=== PATIENT | female | born 1960 | race African-American/Black ===

== ENCOUNTER 2017-09-27 12:38 | Emergency (ER) | payer OTHER ==
[~2017-09-27] VITALS: Ht 162.6 cm; Wt 77.0 kg
[~2017-09-27 12:38] MED LIST: AMLO5TAB22 PO; BENZ100C4 PO; BLOOKIT5; FLUT50SP EACH NARE; HYDR-2768 PO; LOSA50TA PO; METO25CR PO
[2017-09-27 12:47] VITALS: BP 206/93; PULSE 70; RESP 18; TEMP 97.8; O2SAT 100
[2017-09-27] MEDS ORDERED: AMLO10 PO (13:05)
[2017-09-27] MEDS ORDERED: HYDR25TA5 PO (13:05)
[2017-09-27] MEDS ORDERED: LOSA50TA PO (13:05)
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
[2017-09-27] MEDS ORDERED: ORPHENADRINE INJ 60 MG/2 ML AMP IM ONE (13:15)
[2017-09-27] MEDS ORDERED: KETOROLAC TROMETHAMINE 60 MG/2 ML (IM) VIAL IM ONE (13:15)
--- NOTE | 2017-09-27 13:45 | RADRPT ---
EXAM DATE: 09/27/2017 1:41 PM EDT AGE/SEX: 56 years / Female INDICATIONS: Neck pain radiating down right shoulder. CLINICAL DATA: This is the patient's initial encounter. Patient reports that signs and symptoms have been present for 1 day and indicates a pain score of 7/10. MEDICAL/SURGICAL HISTORY: . No pertinent history. . No pertinent history. COMPARISON: No prior exams available for comparison. FINDINGS: Degenerative changes in the cervical spine C4-C5, C5-C6 and C6-C7. AP and odontoid unremarkable. CONCLUSION: Degenerative changes as above. Electronically signed by: Christopher William MD 09/27/2017 1:43 PM EDT
[2017-09-27] MEDS ORDERED: ROBA500T PO (14:06)
[2017-09-27] MEDS ORDERED: IBUP-232 PO (14:06)
== END 2017-09-27 14:21 | disposition home or self-care (01) ==
LOC: NEPC 12:38
DX: S16.1XXA Strain of muscle, fascia and tendon at neck level, initial encounter (principal); I10 Essential (primary) hypertension; V43.62XA Car passenger injured in collision with other type car in traffic accident, initial encounter; Y92.488 Other paved roadways as the place of occurrence of the external cause
CPT/HCPCS: 72040; 96372; 99283; J1885; J2360

== ENCOUNTER 2017-10-02 10:54 | Emergency (ER) | payer SELFPAY ==
[~2017-10-02] VITALS: Ht 152.4 cm; Wt 80.0 kg
[~2017-10-02 10:54] MED LIST changes: +AMLO10 PO; -AMLO5TAB22 PO; -BENZ100C4 PO; -BLOOKIT5; -FLUT50SP EACH NARE; -HYDR-2768 PO; +HYDR25TA5 PO; +IBUP-232 PO; -METO25CR PO; +ROBA500T PO
[2017-10-02 10:57] VITALS: BP 184/86; PULSE 60; RESP 14; TEMP 97.4; O2SAT 100
[2017-10-02] MEDS ORDERED: POLY10O EACH EYE (11:26)
--- NOTE | 2017-10-02 11:26 | PD ---
HPI Chief Complaint: Eye Problems/Injury Time Seen by Provider: 11:09 Travel History International Travel<30 days: No Contact w/Intl Traveler<30days: No Traveled to known affect area: No History of Present Illness HPI 56-year-old female presents to the emergency department with complaint of a rash to the inner corner of bilateral eyes that is itchy and watery eyes 2 days. Denies eye pain, change in vision. Has been waking up in the mornings with her eyes crusted chest. Denies fever, vomiting. Denies recent illness to include nasal congestion, cough, sore throat, ear pain. Has been taking Benadryl for symptom relief. Symptoms are mild in severity. No others with similar symptoms. No known aggravating factors. No primary care provider. No known allergies. History of hypertension. Has no other medical complaints. No other modifying factors or associated signs and symptoms. PFSH Past Medical History Arthritis: No Asthma: No Autoimmune Disease: No Blood Disorders: No Anxiety: No Depression: Yes Heart Rhythm Problems: No Cancer: No Cardiovascular Problems: No High Cholesterol: No Chemotherapy: No Chest Pain: No Congestive Heart Failure: No COPD: No Cerebrovascular Accident: No Diabetes: No Diminished Hearing: No Endocrine: Yes GERD: No Glaucoma: No Genitourinary: No Headaches: Yes (WHEN BP IS ELEVATED) Hepatitis: No Hiatal Hernia: No Hypertension: Yes (ON MEDS) Immune Disorder: No Kidney Stones: No Musculoskeletal: Yes Neurologic: No Psychiatric: Yes Reproductive: No Respiratory: No Migraines: No Myocardial Infarction: No Radiation Therapy: No Renal Failure: No Seizures: No Sickle Cell Disease: No Sleep Apnea: No Thyroid Disease: Yes (NODULE ON THYROID) Ulcer: No : 5 Para: 5 Past Surgical History Abdominal Surgery: No AICD: No Appendectomy: No Arteriovenous Shunt: No Cardiac Surgery: No Cholecystectomy: No Ear Surgery: No Endocrine Surgery: No Eye Surgery: No Genitourinary Surgery: No Gynecologic Surgery: Yes (HYSTERECTOMY) Hysterectomy: Yes Insulin Pump: No Joint Replacement: No Oral Surgery: Yes (WISDOM TEETH EXTRACTION) Pacemaker: No Thoracic Surgery: No Other Surgery: Yes Social History Alcohol Use: No Tobacco Use: No Substance Use: No Allergies-Medications (Allergen,Severity, Reaction): Coded Allergies: No Known Allergies (Verified Adverse Reaction, Unknown, 09/27/17) Reported Meds & Prescriptions Reported Meds & Active Scripts Active Polytrim Opth Drops (Polymyxin/Trimethoprim Sulfate) 10,000-0.1 Unit/Ml-% Soln 2 Drop EACH EYE Q6HR 7 Days Ibuprofen 600 Mg Tab 600 Mg PO Q8HR PRN Robaxin (Methocarbamol) 500 Mg Tab 500 Mg PO TID PRN Reported Norvasc (Amlodipine Besylate) 10 Mg Tab 10 Mg PO DAILY Losartan (Losartan Potassium) 50 Mg Tab 50 Mg PO DAILY Hydrochlorothiazide 25 Mg Tab 25 Mg PO DAILY Review of Systems Except as stated in HPI: all other systems reviewed are Neg Physical Exam Narrative GENERAL: Well-nourished, well-developed black female patient, in no acute distress; afebrile, nontoxic-appearing SKIN: Warm and dry. HEAD: Atraumatic. Normocephalic. EYES: Pupils equal and round at 3 mm with brisk reaction. PERRLA. EOMI. Bilateral lid eversion with no foreign body noted. Bilateral eye without scleral erythema and with mild lid edema. No orbital tenderness, erythema or cellulitis. Bilateral eye without photophobia. No consensual photophobia. No scleral icterus. Clear drainage to both eyes. I do not see any notable rash to the inner eyes or to the skin around the eyes. ENT: Mucosa pink and moist. No erythema or exudates. No uvular edema. No uvular , palatal, or tonsillar deviation. Airway patent. Nasal turbinates appear normal without nasal blood, purulent drainage or septal hematoma. EARS: Bilateral pinnae and external canals appear within normal limits. Bilateral tympanic membranes without erythema, dullness or perforation. NECK: Trachea midline. No lymphadenopathy. CARDIOVASCULAR: Regular rate. RESPIRATORY: No accessory muscle use. GASTROINTESTINAL: Rounded. NEUROLOGICAL: Awake and alert. Oriented 3. No obvious cranial nerve deficits. Motor grossly within normal limits. Normal speech. PSYCHIATRIC: Appropriate mood and affect; insight and judgment normal. Data Data Last Documented VS Vital Signs Date Time Temp Pulse Resp B/P (MAP) Pulse Ox O2 Delivery O2 Flow Rate FiO2 10/02/17 10:57 97.4 60 14 184/86 (118) 100 Orders Orders Ed Discharge Order (10/02/17 11:26) MDM Medical Decision Making Medical Screen Exam Complete: Yes Emergency Medical Condition: Yes Medical Record Reviewed: Yes Differential Diagnosis Allergic conjunctivitis, bacterial conjunctivitis, viral conjunctivitis Narrative Course 56-year-old female HPI and physical exam consistent with bilateral conjunctivitis. Instructed patient to use [id number] allergy eyedrops, as I feel her symptoms are more related to allergies. I will prescribe Polytrim eyedrops for possible bacterial conjunctivitis. Polytrim eyedrops prescribed for home. Instructed patient to follow up with primary care provider. Patient verbalizes understanding and agreement with treatment plan. Patient is medically cleared and stable for discharge. Discussed reasons to return to the emergency department. Patient agrees with treatment plan. The patients vital signs are stable and the patient is stable for outpatient follow- up and treatment. Patient discharged home, stable and in no acute distress. Diagnosis Primary Impression: Bilateral conjunctivitis Qualified Codes: H10.9 - Unspecified conjunctivitis Referrals: [facility] Primary Care Physician Patient Instructions: Conjunctivitis (ED), General Instructions Additional Instructions: Conjunctivitis is contagious Use antibiotic eye drops as prescribed Apply warm or cool compresses to both eyes for a few minutes several times daily to minimize irritation Avoid triggers, such as allergens, that may irritate your eyes Wash your hands frequently Do not share washcloths, towels, pillows, or any other material that has touched your eyes with any other household members Follow-up with your primary care provider Follow-up with ophthalmology as needed Return to the emergency department immediately with worsening of symptoms Med/Other Pt SpecificInfo: Prescription(s) given Scripts Polymyxin B-Trimethoprim Opth Drops (Polytrim Opth Drops) 10,000-0.1 Unit/Ml-% Soln 2 DROP EACH EYE Q6HR for Mgmt Bacterial Infection for 7 Days, #1 BOTTLE 0 Refills Prov: Mela Sandhu 10/02/17 Disposition: 01 DISCHARGE HOME Condition: Stable Mela Sandhu Oct 02, 2017 11:26
== END 2017-10-02 12:04 | disposition home or self-care (01) ==
LOC: NEPK 10:54
DX: H10.9 Unspecified conjunctivitis (principal); F32.9 Major depressive disorder, single episode, unspecified; I10 Essential (primary) hypertension; E04.1 Nontoxic single thyroid nodule
CPT/HCPCS: 99283